=== PATIENT | female | born 1950 | race Caucasian/White ===

== ENCOUNTER 2022-09-07 12:15 | Emergency (ER) | payer MEDICARE, BC ==
[~2022-09-07] VITALS: Ht 152.4 cm; Wt 65.8 kg
--- NOTE | 2022-09-07 12:27 | NUR ---
Dr Stern at the bedside for MSE.
--- NOTE | 2022-09-07 13:10 | NUR ---
Pt out of Er for Ct scan.
[2022-09-07 13:13] LABS: HEMATOCRIT 36.7 % (31.2-41.9); MEAN CORPUSCULAR HEMOGLOBIN 31.9 uug (24.7-32.8); PLATELET COUNT (AUTO) 200 K/uL (179-408)
--- NOTE | 2022-09-07 13:30 | NUR ---
Pt back from Ct, urine collected and taken to Lab.
[2022-09-07 13:51] LABS: *BILIRUBIN,URIN NEGATIVE (NEGATIVE); *BLOOD, URINE NEGATIVE (NEGATIVE); *CLARITY,URINE CLEAR (CLEAR); *COLOR,URINE YELLOW (YELLOW); *KETONES,URINE NEGATIVE (NEGATIVE); *UROBILINOGEN,URINE 0.2 E.U./dl (NORMAL); LEUKOCYTE ESTERASE ,URINE 1+ (NEGATIVE); NITRITE, URINE NEGATIVE (NEGATIVE); PH,URINE 6.5 (5.0-8.0); UGLUCOSE NEGATIVE (NEGATIVE)
[2022-09-07 14:49] LABS: BILIRUBIN,DIRECT < 0.1 mg/dL (0.0-0.2); CARBON DIOXIDE 24 mmol/L (21-32)
--- NOTE | 2022-09-07 14:49 | NUR ---
Patient is resting comfortably in bed talking on the phone, NAD noted.
[2022-09-07 14:50] LABS: ALKALINE PHOSPHATASE 86 U/L (50-136); CREATININE 0.8 mg/dL (0.6-1.3); TOTAL PROTEIN, SERUM 6.8 g/dL (6.4-8.2)
[2022-09-07 14:51] LABS: ALANINE AMINOTRANSFERASE 23 U/L (14-59); ASPARTATE AMINOTRANSFERASE 12 U/L (15-37); GLUCOSE 124 mg/dL (74-106); LIPASE 69 U/L (73-393)
[2022-09-07 14:52] LABS: BILIRUBIN,TOTAL 0.2 mg/dL (0.2-1.0); UREA NITROGEN, BLOOD 12 mg/dL (7-18)
[2022-09-07 15:19] LABS: CHLORIDE 102 mmol/L (98-107); POTASSIUM 4.2 mmol/L (3.5-5.1)
[2022-09-07 15:29] VITALS: BP 123/59
--- NOTE | 2022-09-07 15:29 | NUR ---
Patient discharged to home in stable condition. Written and verbal after care instructions given. Patient verbalizes understanding of instructions. Stressed follow up or return to ER for worsening s/s.
[2022-09-07 16:44] LABS: RBC,URINE NONE SEEN /HPF (0-3); WBC,URINE 0-3 /HPF (0-3)
[2022-09-07 16:45] LABS: BACTERIA,URINE MANY /HPF (NONE SEEN); SQUAMOUS EPITHELIAL CELL,UR FEW /HPF (NONE SEEN)
== END 2022-09-07 15:33 | disposition home or self-care (01) ==
LOC: ER 12:15
DX: R10.9 Unspecified abdominal pain (principal); R18.8 Other ascites; C48.2 Malignant neoplasm of peritoneum, unspecified; Z79.899 Other long term (current) drug therapy; K57.30 Diverticulosis of large intestine without perforation or abscess without bleeding; K43.9 Ventral hernia without obstruction or gangrene
CPT/HCPCS: 36415; 83690; 85025; 87086; A4663

== ENCOUNTER 2024-08-30 00:20 | Emergency (ER) | payer MEDICARE, BC ==
[~2024-08-30] VITALS: Ht 157.5 cm; Wt 64.9 kg
[2024-08-30] MEDS ORDERED: PANT40TA49 PO (00:43)
[2024-08-30] MEDS ORDERED: METO-357 PO (00:43)
[2024-08-30] MEDS ORDERED: AMOX1TAB16 PO (00:43)
[2024-08-30] MEDS ORDERED: LISI40TA13 PO (00:43)
[2024-08-30] MEDS ORDERED: CYCLOPHOSPHAMIDE PO (00:45)
[2024-08-30] MEDS ORDERED: CLONIDINE HCL 0.1 MG TABLET ONE (01:03)
[2024-08-30] MEDS: CLONIDINE HCL 0.1 MG TABLET PO ONE (01:07)
[2024-08-30 01:31] LABS: BASOPHILS % (AUTO) 0.8 % (0.0-2.0); EOSINOPHILS # (AUTO) 0.2 K/uL (0.0-0.7); EOSINOPHILS % (AUTO) 3.1 % (0.0-7.0); HEMATOCRIT 31.4 % (31.2-41.9); HEMOGLOBIN 10.1 g/dL (10.9-14.3); LYMPHOCYTES # (AUTO) 0.6 K/uL (0.8-4.8); LYMPHOCYTES % (AUTO) 12.8 % (20.5-51.5); MEAN CORPUSCULAR HGB CONC 32 g/dL (32.3-35.6); MEAN CORPUSCULAR VOLUME 77.9 fL (75.5-95.3); MONOCYTES # (AUTO) 0.7 K/uL (0.1-1.30); NEUTROPHILS # (AUTO) 3.5 K/uL (1.8-8.9); NEUTROPHILS % (AUTO) 69.3 % (38.5-71.5); PLATELET COUNT (AUTO) 117 K/uL (179-408); RED BLOOD CELL COUNT(AUTO) 4.03 MIL/uL (3.63-4.92)
[2024-08-30 01:36] LABS: ALANINE AMINOTRANSFERASE 53 U/L (14-59); ALBUMIN 3.3 g/dL (3.4-5.0); ALKALINE PHOSPHATASE 300 U/L (50-136); ASPARTATE AMINOTRANSFERASE 63 U/L (15-37); BILIRUBIN,TOTAL 0.5 mg/dL (0.2-1.0); CARBON DIOXIDE 25 mmol/L (21-32); CHLORIDE 104 mmol/L (98-107); CREATININE 0.7 mg/dL (0.6-1.3); GLUCOSE 123 mg/dL (74-106); POTASSIUM 3.4 mmol/L (3.5-5.1); SODIUM SERUM 142 mmol/L (136-145); TOTAL PROTEIN, SERUM 7.1 g/dL (6.4-8.2); UREA NITROGEN, BLOOD 7 mg/dL (7-18)
[2024-08-30 02:05] LABS: *BILIRUBIN,URIN NEGATIVE (NEGATIVE); *BLOOD, URINE NEGATIVE (NEGATIVE); *CLARITY,URINE CLEAR (CLEAR); *COLOR,URINE YELLOW (YELLOW); *KETONES,URINE NEGATIVE (NEGATIVE); *PROTEIN,URINE NEGATIVE (NEGATIVE); *UROBILINOGEN,URINE 0.2 E.U./dl (NORMAL); LEUKOCYTE ESTERASE ,URINE NEGATIVE (NEGATIVE); NITRITE, URINE NEGATIVE (NEGATIVE); PH,URINE 8.5 (5.0-8.0); UGLUCOSE NEGATIVE (NEGATIVE)
[2024-08-30] MEDS ORDERED: POTASSIUM CHLORIDE 20 MEQ TAB.PRT.SR ONE (02:27)
[2024-08-30] MEDS: POTASSIUM CHLORIDE 20 MEQ TAB.PRT.SR PO ONE (02:27)
[2024-08-30] MEDS ORDERED: CLON0.1T PO (04:02)
[2024-08-30 04:41] VITALS: BP 134/81; TEMP 97.7; O2SAT 98
== END 2024-08-30 04:31 | disposition home or self-care (01) ==
LOC: ER 00:26
DX: I10 Essential (primary) hypertension (principal); D64.9 Anemia, unspecified; E87.6 Hypokalemia; C56.9 Malignant neoplasm of unspecified ovary; G47.9 Sleep disorder, unspecified; Z79.899 Other long term (current) drug therapy; Z87.440 Personal history of urinary (tract) infections
CPT/HCPCS: 36415; 70450; 71045; 84484; 85025; 85730; 93005; A4606; A4663